=== PATIENT | female | born 1955 | race Caucasian/White ===

== ENCOUNTER 2024-03-11 13:57 | Inpatient (IN) ==
[2024-03-11] MEDS ORDERED: IOPAMIDOL 100 ML BOTTLE IV ONE (13:58)
[2024-03-11] MEDS: ONDANSETRON 4 MG ODT TABLET SL ONE (14:30)
[2024-03-11] MEDS: ACETAMINOPHEN 325 MG TABLET PO ONE (14:30)
[2024-03-11] MEDS: KETOROLAC 60 MG/2 ML VIAL IM ONE (14:30)
[2024-03-11] MEDS: IPRATROPIUM/ALBUTEROL 3 ML AMPUL.NEB NEB ONE (15:10)
[2024-03-11 15:52] LABS: Basophils # (Auto) 0.02 K/mcL (0.00-0.30); Basophils % (Auto) 0.1 % (0.0-2.0); Eosinophils # (Auto) 0 K/mcL (0.00-0.70); Eosinophils % (Auto) 0 % (0.0-7.0); Hematocrit 37.4 % (34.1-44.9); Hemoglobin 12.1 g/dL (11.2-15.7); Lymphocytes # (Auto) 0.63 K/mcL (1.50-4.80); Lymphocytes % (Auto) 4.5 % (15.5-49.0); Mean Cell Volume 90.3 fL (80.0-100.0); Mean Corpuscular HGB Conc 32.4 g/dL (31.0-36.0); Mean Platelet Volume 9.3 fL (8.8-12.5); Monocytes # (Auto) 1.37 K/mcL (0.10-0.90); Monocytes % (Auto) 9.7 % (1.0-12.0); Neutrophils % (Auto) 85.5 % (38.0-78.0); Platelet Count 249 K/mcL (140-440); RBC 4.14 M/mcL (3.59-5.38); Red Cell Distribution Width 14.2 % (11.5-14.5); WBC 14.1 K/mcL (4.5-11.0)
[2024-03-11] MEDS: DEXAMETHASONE 10 MG/ML VIAL IV ONE (15:53)
[2024-03-11 16:11] LABS: Blood Urea Nitrogen 42 mg/dL (8-23); Calcium 9.8 mg/dL (8.6-10.4); Carbon Dioxide 22 mmol/L (22-30); Chloride 98 mmol/L (96-108); Glomerular Filtration Rate 35; Glucose 231 mg/dL (70-105); Sodium 136 mmol/L (133-145)
[2024-03-11] MEDS: cefTRIAXone 2 GM in DEXTROSE 5% IN WATER 50 ML IV ONE (17:29)
[2024-03-11] MEDS: AZITHROMYCIN 250 MG TABLET PO ONE (17:30)
[2024-03-11] MEDS: FUROSEMIDE 40 MG/4 ML VIAL IV ONE (17:30)
[2024-03-11 18:39] LABS: ABG Methemoglobin 0.2 % (0.4-1.5); Total Hemoglobin 12.6 gm/Dl (12.0-15.0); VBG Base Excess -2 (-2-3); VBG HCO3 22.4 mmol/L (24.0-28.0); VBG PCO2 36.9 mmHg (41.0-51.0); VBG PO2 96.2 mmHg (25.0-40.0); VBG Total CO2 23.5 mmol/L (25.0-29.0)
[2024-03-11] MEDS ORDERED: DEXTROSE 31 GM ORAL.SUSP PO PRN (20:40)
[2024-03-11] MEDS ORDERED: SENNOSIDES 1 TABLET PO PRN (20:40)
[2024-03-11] MEDS ORDERED: DEXTROSE 50% 50 ML VIAL IV PRN (20:40)
[2024-03-11] MEDS ORDERED: LACTULOSE 20 GM/30 ML ORAL.SOL PO PRN (20:40)
[2024-03-11] MEDS: 0.9 % SODIUM CHLORIDE 1,000 ML IV ONE (21:21)
[2024-03-11] MEDS: DOCUSATE SODIUM 100 MG CAPSULE PO SCH (21:23)
[2024-03-11] MEDS: INSULIN LISPRO 1 UNIT/0.01 ML UNIT SQ SCH (21:24)
[2024-03-11] MEDS: INSULIN GLARGINE, HUMAN 1 UNIT/0.01 ML SQ SCH (21:24)
[2024-03-11] MEDS: 0.9 % SODIUM CHLORIDE 10 ML SYRINGE IV SCH (21:25)
[2024-03-11] MEDS: REMDESIVIR 200 MG in 0.9 % SODIUM CHLORIDE 250 ML IV ONE (22:40)
[2024-03-12 02:48] LABS: Appearance,Urine HAZY (Clear); Bacteria,Urine FEW /hpf (0); Bilirubin,Urine Negative (Negative); Color,Urine YELLOW; Culture Indicated,Urine Yes; Glucose,Urine (UA) >=500 mg/dL (Negative); Ketones,Urine Negative (Negative); Leukocyte Esterase,Urine 75 /uL (Negative); Mucus,Urine FEW /hpf; Nitrate,Urine Negative (Negative); Protein,Urine Negative (Negative); Urine Blood Negative (Negative); Urine Hyaline Cast 1 /lph (0-2); Urine RBC 1 /hpf (0-3); Urine Squamous Epithelial Cell < 1 /hpf (0-4); Urine Transitional Epi Cells < 1 /hpf (0-2); Urine WBC 14 /hpf (0-4); Urobilinogen,Urine Negative
[2024-03-12 06:53] LABS: Basophils # (Auto) 0.01 K/mcL (0.00-0.30); Basophils % (Auto) 0.1 % (0.0-2.0); Eosinophils # (Auto) 0 K/mcL (0.00-0.70); Eosinophils % (Auto) 0 % (0.0-7.0); Hematocrit 36.7 % (34.1-44.9); Hemoglobin 11.6 g/dL (11.2-15.7); Lymphocytes # (Auto) 0.93 K/mcL (1.50-4.80); Lymphocytes % (Auto) 8.8 % (15.5-49.0); Mean Cell Volume 92.7 fL (80.0-100.0); Mean Corpuscular HGB Conc 31.6 g/dL (31.0-36.0); Mean Platelet Volume 9.2 fL (8.8-12.5); Monocytes # (Auto) 0.46 K/mcL (0.10-0.90); Monocytes % (Auto) 4.4 % (1.0-12.0); Neutrophils % (Auto) 86.3 % (38.0-78.0); Platelet Count 252 K/mcL (140-440); RBC 3.96 M/mcL (3.59-5.38); Red Cell Distribution Width 14.3 % (11.5-14.5); WBC 10.6 K/mcL (4.5-11.0)
[2024-03-12 07:23] LABS: ALT/SGPT 18 U/L (<40); AST/SGOT 25 U/L (<32); Albumin/Globulin Ratio 1.7 (1.0-2.3); Alkaline Phosphatase 66 U/L (39-117); Bilirubin,Direct < 0.2 mg/dL (0-0.3); Bilirubin,Total < 0.2 mg/dL (0.1-1.0); Blood Urea Nitrogen 45 mg/dL (8-23); Calcium 9.2 mg/dL (8.6-10.4); Carbon Dioxide 21 mmol/L (22-30); Chloride 103 mmol/L (96-108); Globulin 2.4 gm/dL (2.2-3.7); Glomerular Filtration Rate 35; Glucose 241 mg/dL (70-105); Lactate Dehydrogenase 140 U/L (135-225); Phosphorous 4.9 mg/dL (2.5-4.5); Potassium 3.9 mmol/L (3.3-5.1); Sodium 140 mmol/L (133-145); Triglycerides 142 mg/dL (<150); Uric Acid 7.2 mg/dL (2.5-8.0)
[2024-03-12] MEDS ORDERED: oxyCODONE IR 5 MG TABLET PO PRN (08:00)
[2024-03-12] MEDS: INSULIN GLARGINE, HUMAN 1 UNIT/0.01 ML SQ SCH (08:22)
[2024-03-12] MEDS: ENOXAPARIN 40 MG/0.4 ML SYRINGE SQ SCH (08:23)
[2024-03-12] MEDS: ASPIRIN 81 MG TAB.CHEW PO SCH (08:23)
[2024-03-12] MEDS: cefTRIAXone 2 GM in DEXTROSE 5% IN WATER 50 ML IV SCH (10:41)
[2024-03-12] MEDS: DEXAMETHASONE 10 MG/ML VIAL IV SCH (14:47)
[2024-03-12] MEDS: REMDESIVIR 100 MG in 0.9 % SODIUM CHLORIDE 250 ML IV SCH (14:47)
[2024-03-12] MEDS: ACETAMINOPHEN 325 MG TABLET PO PRN (20:19)
[2024-03-12] MEDS: ONDANSETRON 4 MG/2 ML VIAL IV PRN (22:06)
[2024-03-12] MEDS: BACLOFEN 10 MG TABLET PO PRN (23:55)
[2024-03-13 05:59] LABS: Basophils # (Auto) 0 K/mcL (0.00-0.30); Basophils % (Auto) 0 % (0.0-2.0); Eosinophils # (Auto) 0 K/mcL (0.00-0.70); Eosinophils % (Auto) 0 % (0.0-7.0); Hematocrit 37.5 % (34.1-44.9); Hemoglobin 12.1 g/dL (11.2-15.7); Lymphocytes % (Auto) 9.1 % (15.5-49.0); Mean Cell Volume 91.5 fL (80.0-100.0); Mean Corpuscular HGB Conc 32.3 g/dL (31.0-36.0); Mean Platelet Volume 9.4 fL (8.8-12.5); Monocytes % (Auto) 7.1 % (1.0-12.0); Neutrophils % (Auto) 83.5 % (38.0-78.0); Platelet Count 281 K/mcL (140-440); Red Cell Distribution Width 14.4 % (11.5-14.5); WBC 15.4 K/mcL (4.5-11.0)
[2024-03-13 07:05] LABS: ALT/SGPT 23 U/L (<40); AST/SGOT 36 U/L (<32); Albumin/Globulin Ratio 1.6 (1.0-2.3); Alkaline Phosphatase 60 U/L (39-117); Bilirubin,Direct < 0.2 mg/dL (0-0.3); Bilirubin,Total < 0.2 mg/dL (0.1-1.0); Blood Urea Nitrogen 42 mg/dL (8-23); Calcium 9.5 mg/dL (8.6-10.4); Carbon Dioxide 22 mmol/L (22-30); Chloride 107 mmol/L (96-108); Globulin 2.5 gm/dL (2.2-3.7); Glomerular Filtration Rate 51; Glucose 150 mg/dL (70-105); Lactate Dehydrogenase 178 U/L (135-225); Phosphorous 3.6 mg/dL (2.5-4.5); Potassium 3.7 mmol/L (3.3-5.1); Sodium 144 mmol/L (133-145); Triglycerides 151 mg/dL (<150); Uric Acid 7.5 mg/dL (2.5-8.0)
[2024-03-13] MEDS: MIRTAZAPINE 15 MG TABLET PO SCH (09:56)
[2024-03-13] MEDS: GABAPENTIN 300 MG CAPSULE PO SCH (09:56)
[2024-03-13] MEDS: amLODIPine 10 MG TABLET PO SCH (09:56)
[2024-03-13] MEDS: OMEPRAZOLE 20 MG CAPSULE PO SCH (09:56)
[2024-03-13] MEDS: ATORVASTATIN 40 MG TABLET PO SCH (09:57)
[2024-03-13] MEDS: buPROPion 150 MG TAB.XL.24H PO SCH (09:57)
[2024-03-13] MEDS: FUROSEMIDE 20 MG TABLET PO SCH (09:57)
[2024-03-13] MEDS: BISOPROLOL 5 MG TABLET PO SCH (09:57)
[2024-03-13] MEDS: QUEtiapine 100 MG TABLET PO SCH ×2 (09:59→20:21)
[2024-03-13] MEDS: lamoTRIgine 25 MG TABLET PO SCH (11:16)
[2024-03-13] MEDS: CEFDINIR 300 MG CAPSULE PO SCH (14:59)
[2024-03-13] MEDS ORDERED: ONDANSETRON 4 MG ODT TABLET SL PRN (18:29)
[2024-03-13] MEDS: lamoTRIgine 100 MG TABLET PO SCH (20:22)
[2024-03-14 05:44] LABS: Basophils # (Auto) 0.01 K/mcL (0.00-0.30); Basophils % (Auto) 0.1 % (0.0-2.0); Eosinophils # (Auto) 0.03 K/mcL (0.00-0.70); Eosinophils % (Auto) 0.4 % (0.0-7.0); Hematocrit 36.8 % (34.1-44.9); Hemoglobin 11.5 g/dL (11.2-15.7); Lymphocytes # (Auto) 1.83 K/mcL (1.50-4.80); Lymphocytes % (Auto) 23.3 % (15.5-49.0); Mean Cell Volume 94.1 fL (80.0-100.0); Mean Corpuscular HGB Conc 31.3 g/dL (31.0-36.0); Mean Platelet Volume 9.1 fL (8.8-12.5); Monocytes # (Auto) 0.85 K/mcL (0.10-0.90); Monocytes % (Auto) 10.8 % (1.0-12.0); Neutrophils % (Auto) 65.3 % (38.0-78.0); Platelet Count 254 K/mcL (140-440); RBC 3.91 M/mcL (3.59-5.38); Red Cell Distribution Width 14.4 % (11.5-14.5); WBC 7.8 K/mcL (4.5-11.0)
[2024-03-14 06:28] LABS: ALT/SGPT 38 U/L (<40); AST/SGOT 53 U/L (<32); Albumin 3.9 gm/dL (3.2-5.2); Albumin/Globulin Ratio 1.8 (1.0-2.3); Alkaline Phosphatase 52 U/L (39-117); Bilirubin,Direct < 0.2 mg/dL (0-0.3); Bilirubin,Total < 0.2 mg/dL (0.1-1.0); Blood Urea Nitrogen 34 mg/dL (8-23); Calcium 9.1 mg/dL (8.6-10.4); Carbon Dioxide 23 mmol/L (22-30); Chloride 106 mmol/L (96-108); Globulin 2.2 gm/dL (2.2-3.7); Glomerular Filtration Rate 51; Glucose 142 mg/dL (70-105); Lactate Dehydrogenase 160 U/L (135-225); Phosphorous 3.2 mg/dL (2.5-4.5); Potassium 3.3 mmol/L (3.3-5.1); Sodium 142 mmol/L (133-145); Triglycerides 308 mg/dL (<150); Uric Acid 7.7 mg/dL (2.5-8.0)
[2024-03-14] MEDS: POTASSIUM CHLORIDE 20 MEQ TABLET PO ONE (12:07)
== END 2024-03-14 12:30 | disposition home or self-care (01) | DRG 177 ==
LOC: ED 13:57 → ICU 20:30
PROVIDERS: ADMIT Internal Medicine; ATTEND Internal Medicine